=== PATIENT | female | born 1940 | race Caucasian/White ===

== ENCOUNTER 2017-06-05 11:21 | Observation (INO) ==
[2017-06-05] MEDS ORDERED: Polyethylene Glycol 3350 255 GM POWDER PO ONE ×2 (12:55→16:00)
--- NOTE | 2017-06-05 16:00 | Internal Med History&Physical ---
Date of Encounter: 06/05/17 Time of Encounter: 15:00 Assessment and Plan (1) Constipation Current visit: No Status: Acute Change in bowel habits and having a colonoscopy, tomorrow. She is admitted for observation and assistance while undergoing prep because of previous difficulties with same. Qualifiers: Constipation type: unspecified constipation type Qualified Code(s): K59.00 - Constipation, unspecified (2) Hyperkalemia Current visit: No Status: Acute Resolved her labs on May 08 but will recheck today to verify, before procedure. (3) History of coronary artery disease Current visit: No Status: Chronic Clinically stable. We will continue home regimen and follow. She states that she does not use nitroglycerin. (4) History of poliomyelitis Current visit: No Status: Chronic Atypical history and findings. (5) Hypertension Current visit: No Status: Chronic Clinically stable. We will continue home regimen and follow. Qualifiers: Hypertension type: essential hypertension Qualified Code(s): I10 - Essential (primary) hypertension Internal Medicine - H&P: HPI Admitted From: Home Plans for Post Hospital Care: Home History of present illness: Ms. Taylor is a 77 year old female with a history of heme positive stool, constipation, anemia who is to be evaluated by colonoscopy, tomorrow. She has lost 23 pounds in the last month. She denies hematochezia or emesis or hematemesis. She does occasionally have melena, intermittently. She was seen in April by Dr. Javy Bowens of cardiology who approved her for colonoscopy but recommended pre-procedure labs be repeated. Upon review of the record, these were repeated on May 08 and are unremarkable. 2 years ago, while being prepared for a colonoscopy, she had non-STEMI and never had the procedure. She had placement of a stent, at that time. For this reason, she is being admitted and is to undergo the prep and patient. 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 She states that she has "arthritis throughout my body," but she is not certain as to what type. This involves her right knee and spine, especially. She has had bilateral cataract extractions with IOL. She is edentulous and does not wear her dentures because they do not fit. Past Med Surg Social Fam HX - Past Medical History Medical history: arthritis, hyperlipidemia, hypertension, myocardial infarction , other (History of childhood polio and has gait abnormality) Psychiatric history: no psych history - Past Surgical History Surgical History: cholecystectomy, hysterectomy, orthopedic, other - Social History Smoking Status: Never smoker Smokeless Tobacco Status: No Alcohol use: rarely Drug use: none Internal Medicine - H&P: Meds Aspirin [Lo-Dose Aspirin EC] 81 mg PO DAILY 11/06/16 [History] Atorvastatin [Lipitor] 40 mg PO HS 11/06/16 [History] Alendronate Sodium [Fosamax] 70 mg PO QWEEK 02/17/17 [History] Calcium Carbonate/Magnesium Ox [Oyster Shell Calcium-Magnes Tb] 1 each PO BID [History] Carvedilol 3.125 mg PO BID 04/04/17 [History] Lisinopril [Zestril] 40 mg PO DAILY 04/04/17 [History] hydrALAZINE [HydrALAZINE] 25 mg PO TID 04/04/17 [History] Multivitamin [One Daily Essential] 1 each PO DAILY #30 tablet 04/05/17 [Rx] Sennosides/Docusate Sodium [Senna Plus] 1 each PO BID #60 tablet 04/05/17 [Rx] Vitamin B Complex [B Complex] 1 each PO DAILY 04/05/17 [History] Calcium Carbonate/Vitamin D3 [Oyster Shell Calcium-Vit D Tab] 1 each PO DAILY [History] Cholecalciferol (Vitamin D3) [Vitamin D] 1,000 unit PO DAILY 06/05/17 [History] 3 Allergy/AdvReac Type Severity Reaction Status Date / Time hydrochlorothiazide Allergy See Verified 06/05/17 11:03 Comments naproxen Allergy See Verified 06/05/17 11:03 Comments Oxycodone Allergy See Verified 06/05/17 11:03 Comments Triamterene Allergy See Verified 06/05/17 11:03 Comments All Systems PM: A 14-system review of systems was performed and is negative for pertinent findings except as documented above in the HPI. - Constitutional Vitals: Temp Pulse Resp BP Pulse Ox 97.5 F L 63 18 151/75 97 06/05/17 13:00 06/05/17 13:00 06/05/17 13:00 06/05/17 13:00 06/05/17 13:00 Exam: Examination: (Except as mentioned above): General: In no apparent distress, alert and oriented 3. Head: Atraumatic and normocephalic. Eyes: Extraocular muscles are intact, pupils equal round and reactive to light and accommodation. Sclerae anicteric. Ears: External ears are normal to inspection and hearing is grossly normal. Nose: Patent without lesion noted. Mouth: No intraoral lesions seen. Dentition is unremarkable. Neck: Supple with trachea midline. There is no thyromegaly or adenopathy and carotids are 2+ without bruit heard. Respiratory: No use of accessory muscles. Lungs are clear throughout. Normal airflow. Cardiovascular: Regular rate and rhythm with a grade 1/6 systolic murmur heard at the left lower sternal border, only. Abdomen: Bowel sounds are normal. No hepatosplenomegaly masses or tenderness. Extremities: No cyanosis clubbing or edema. There is mild atrophy of the right versus left but the difference is minimal. She has decreased range of motion at the ankle, on the right. Neurological: A and O 3. Cranial nerves II through XII are intact. No focal deficits and no abnormal movements or postures, except as related to her right lower extremity atrophy. Skin: Warm and non-diaphoretic with no lesions noted. Breasts, pelvic and rectal: Not examined.
[2017-06-05] MEDS ORDERED: NON-FORMULARY MEDICATION 1 EACH EACH (Alendronate Sodium [Fosamax] 70 MG) PO SCH (16:30)
[2017-06-05 18:38] LABS: BUN/Creatinine Ratio 21 (6-26); Blood Urea Nitrogen 17 mg/dL (8-23); Carbon Dioxide 25 mEq/L (23-29); Chloride 104 mEq/L (98-107); Glucose 172 mg/dL (70-105); Osmolality,Calculated 286 (280-300); Potassium 4.5 mEq/L (3.5-5.1); Sodium 135 mEq/L (136-145); eGFR For African Americans > 60 (> 60); eGFR For Non-African Americans > 60 (> 60)
[2017-06-05] MEDS: Sennosides/Docusate Sodium TABLET PO SCH (21:21)
[2017-06-05] MEDS: hydrALAZINE 25 MG TABLET PO SCH (21:21)
[2017-06-06] MEDS ORDERED: Aspirin Enteric Coated 81 MG Tablet PO SCH (09:00)
[2017-06-06] MEDS ORDERED: Lisinopril 20 MG TABLET PO SCH (09:00)
[2017-06-06] MEDS ORDERED: Vitamin B Complex/Vit C/Vit E 1 EACH TABLET PO SCH (09:00)
[2017-06-06] MEDS ORDERED: Multivit/Ca/Min/Fe/FA 1 TAB TABLET PO SCH (09:00)
[2017-06-06] MEDS ORDERED: Cholecalciferol (D-3) 1,000 UNIT TABLET PO SCH (09:00)
--- NOTE | 2017-06-06 09:28 | Internal Med Progress Note ---
Date of Encounter: 06/06/17 Time of Encounter: 08:20 - Assessment and plan (1) Constipation Current Visit: No Status: Acute Assessment and plan: She is to undergo colonoscopy today. Nursing is attempting to validate her need for discharge for that procedure, or not. In any event, she will be discharged today. Qualifiers: Constipation type: unspecified constipation type Qualified Code(s): K59.00 - Constipation, unspecified (2) Hyperkalemia Current Visit: No Status: Acute Assessment and plan: Resolved. (3) History of coronary artery disease Current Visit: No Status: Chronic Assessment and plan: Clinically stable. No signs or symptoms of cardiopulmonary disorders. (4) History of poliomyelitis Current Visit: No Status: Chronic Assessment and plan: Dysfunction of right lower extremity which is relatively mild. (5) Hypertension Current Visit: No Status: Chronic Assessment and plan: Stable vital signs. Qualifiers: Hypertension type: essential hypertension Qualified Code(s): I10 - Essential (primary) hypertension - Time Spent With Patient 25 - 35 minutes - Subjective Interval history: Patient is without complaint and states that she tolerated her preparation, well. However, nursing notes that she refused to get out of bed and she has been incontinent in bed, all night. Patient has no complaint of chest discomfort, dyspnea, orthopnea, palpitations, nausea or vomiting, constipation or diarrhea, other changes in bowel habits, difficulty with urination, rash or itching, or other new complaints, except as mentioned above. Review of systems is otherwise unremarkable. - Constitutional Vitals: Temp Pulse Resp BP Pulse Ox 97.8 F 59 16 104/61 95 06/06/17 07:13 06/06/17 07:13 06/06/17 07:13 06/06/17 07:13 06/06/17 07:13 Exam: Examination: (Except as mentioned above): General: In no apparent distress. Alert and oriented 3. Nondiaphoretic. Head: Atraumatic and normocephalic. Respiratory: No use of accessory muscles. Lungs are clear throughout. Normal airflow. Cardiovascular: Regular rate and rhythm without murmur appreciated. Abdomen: Bowel sounds are normal. No hepatosplenomegaly mass or tenderness appreciated. Extremities: No cyanosis clubbing or edema. Skin: Warm and non-diaphoretic with no new lesions noted. Internal Medicine: Result - Labs CBC & Chem 7: 06/05/17 18:05 Labs: BMP 06/05/17 18:05 Sodium 135 L Potassium 4.5 Chloride 104 Carbon Dioxide 25 BUN 17 Creatinine 0.81 Glucose 172 H Calcium 9.0 Consult Discharge Plan - Plan Referrals: Luis E Waters MD [Primary Care Provider] -
[2017-06-06] MEDS ORDERED: *HR* Propofol 200 MG/20 ML VIAL IVP ONE (10:00)
[2017-06-06] MEDS: MAGNESIUM OX PO SCH (14:22)
[2017-06-06] MEDS: CALCIUM CARBONATE PO SCH (14:22)
[2017-06-06] MEDS: hydrALAZINE 25 MG TABLET PO SCH (14:22)
[2017-06-06] MEDS: Sennosides/Docusate Sodium TABLET PO SCH (14:23)
--- NOTE | 2017-06-06 14:40 | Discharge Summary ---
Orders not resulted at time of discharge: Pending orders 06/05/17 15:57 EKG [ECG 12 lead ECG] [ECG] Routine Date of Encounter: 06/06/17 Time of Encounter: 14:38 - Discharge Diagnosis (1) GI bleed Priority: Primary Status: Acute Comments: No acute issues. Hx of melena. Continue with f/u with GI as outpatient. Tolerated colonoscopy well. Qualifiers: GI bleed type/associated pathology: unspecified gastrointestinal hemorrhage type Qualified Code(s): K92.2 - Gastrointestinal hemorrhage, unspecified (2) History of coronary artery disease Priority: Secondary Status: Chronic Comments: No acute issues. Continue on home meds after discharge. (3) Hypertension Priority: Secondary Status: Chronic Comments: No acute issues. Continue on home meds. Qualifiers: Hypertension type: essential hypertension Qualified Code(s): I10 - Essential (primary) hypertension Hospital course: Ms. Taylor is a 77 year old female with a history of heme positive stool, constipation, anemia who is to be evaluated by colonoscopy, tomorrow. She has lost 23 pounds in the last month. She denies hematochezia or emesis or hematemesis. She does occasionally have melena, intermittently. Pt had admission about 2 years ago, while being prepared for a colonoscopy, she had non -STEMI and never had the procedure. She had placement of a stent, at that time. For this reason, she iwas admitted to undergo the prep. Pt tolerated her prep and today the procedure well. Pt was on monitor overnight with no cardiac events noted. Pt is currently awake and appears relaxed in her room. She denies any discomforts or dyspnea. VSS. Pt has had lunch and tolerated it well. No results of colonscopy rec'd and patient is to f/u with GI as outpatient. Discharge discussed with: patient, family Time spent discussing smoking cessation with patient: 3 to 10 minutes - Time Spent with Patient Total time spent providing and/or coordinating discharge services: Less than 30 minutes - Discharge Medications Home Medications: Aspirin [Lo-Dose Aspirin EC] 81 mg PO DAILY 11/06/16 [History] Atorvastatin [Lipitor] 40 mg PO HS 11/06/16 [History] Alendronate Sodium [Fosamax] 70 mg PO QWEEK 02/17/17 [History] Calcium Carbonate/Magnesium Ox [Oyster Shell Calcium-Magnes Tb] 1 each PO BID [History] Carvedilol 3.125 mg PO BID 04/04/17 [History] Lisinopril [Zestril] 40 mg PO DAILY 04/04/17 [History] hydrALAZINE [HydrALAZINE] 25 mg PO TID 04/04/17 [History] Multivitamin [One Daily Essential] 1 each PO DAILY #30 tablet 04/05/17 [Rx] Sennosides/Docusate Sodium [Senna Plus] 1 each PO BID #60 tablet 04/05/17 [Rx] Vitamin B Complex [B Complex] 1 each PO DAILY 04/05/17 [History] Cholecalciferol (Vitamin D3) [Vitamin D] 1,000 unit PO DAILY 06/05/17 [History] Allergies/Adverse Reactions: 3 Allergy/AdvReac Type Severity Reaction Status Date / Time hydrochlorothiazide Allergy See Verified 06/05/17 11:03 Comments naproxen Allergy See Verified 06/05/17 11:03 Comments Oxycodone Allergy See Verified 06/05/17 11:03 Comments Triamterene Allergy See Verified 06/05/17 11:03 Comments Date of admission: 06/05/17 11:22 Primary care physician: Luis E Waters MD Discharging clinician: Fly Hays Anticipated date of discharge: 06/06/17 - Constitutional Vitals: Temp Pulse Resp BP Pulse Ox 97.8 F 59 16 104/61 95 06/06/17 07:13 06/06/17 07:13 06/06/17 07:13 06/06/17 07:13 06/06/17 07:13 General appearance: Present: A&O X 3, pleasant - Head Head exam: Present: atraumatic, normocephalic - Eye Eye exam: Present: PERRL, conjuntiva pink, sclera anicteric Pupils: Present: PERRL - Neck Neck exam general surgery: Present: supple, trachea midline. Absent: lymphadenopathy - Respiratory Respiratory exam: Present: CTAB. Absent: accessory muscle use, rales, rhonchi, wheezes - Cardiovascular Cardiovascular exam: Present: RRR, +S1, +S2. Absent: diastolic murmur, gallop, rubs, systolic murmur - GI/Abdominal GI/Abdominal exam: Present: normal bowel sounds, soft, no peritoneal signs. Absent: distended, tenderness Additional comments: BS hyperactive at this time. - Extremities Exam Extremities exam: Present: warm, radial pulses palpable and symmetrical. Absent : calf tenderness, cyanotic, pedal edema - Neurological Exam Neurological exam: Present: CN II-XII intact, oriented X3, no focal deficits. Absent: pronater drift, facial droop, speech deficit - Skin Skin exam: Present: dry, intact - Patient Status Disposition: Home, Self-Care Condition: Good Functional capacity at discharge: uses cane/walker Overall status at discharge: patient is progressing back to baseline - Discharge Instructions Follow Up With: uLis E Waters MD [Primary Care Provider] - - Diet and Activity Activity: ambulate only with your walker, resume usual activities as tolerated Diet: advance to your usual diet - VTE Reasons for not Prescribing Prophylaxis: Medical contraindication
[2017-06-06 19:38] VITALS: BP 137/73
== END 2017-06-06 15:00 | disposition home or self-care (01) ==
LOC: INPGRE